=== PATIENT | female | born 1950 | race Caucasian/White ===

== ENCOUNTER 2020-08-19 14:54 | Inpatient (IN) | payer MEDICARE ==
--- NOTE | 2020-08-19 15:56 | CT ---
Exam: Head CT without contrast HISTORY: Altered mental status. Alert and oriented x2. Left-sided deficit. Previous CVA. COMPARISON: none FINDINGS: Hemorrhage: No intraparenchymal hemorrhage or extra-axial hematoma. Brain parenchyma: Encephalomalacia and gliosis involving the left occipital lobe due to previous left ACID TESTER distribution infarction. Remainder the cerebrum demonstrates preservation of cortical sanabria-white white matter differentiation.Hypodensity in the posterior limb of the right internal capsu le due to remote insult. Ventricular system: Ventricles and sulci are patent and symmetric. Calvarium: Intact. Sinuses and mastoid air cells: Adequate aeration. IMPRESSION: No acute intracranial process.
[2020-08-19 16:16] LABS: Bacteria/HPF 2+ HPF (None Seen); Bilirubin Negative (Negative); Blood, Urine 1+ (Negative); Clarity Turbid (Clear); Glucose, Urine (Dipstick) Normal (Negative); Ketone, Urine Negative (Negative); Leukocyte 500 Leu/uL (Negative); Medtox Reader # READER 4; Nitrite Negative (Negative); Protein, Urine (Dipstick) 70 mg/dL (Neg-Trace); Specific Gravity, Urine 1.014 (1.002-1.036); Squamous Epithelial 0-3 HPF (0-3); Urobilinogen Normal mg/dL (Less than 2); WBC/HPF Greater than 50 HPF (0-3); pH, Urine 6.5 (5.0-9.0)
[2020-08-19 16:18] LABS: Amphetamine Not Detected (NotDetected); Cocaine Metabolite Screen Not Detected (NotDetected); Methamphetamine Not Detected (NotDetected); Opiate Screen Detected (NotDetected); Phencyclidine (PCP) Not Detected (NotDetected); THC/Cannabinoid Screen Detected (NotDetected)
[2020-08-19 16:19] LABS: Barbiturates Screen Not Detected (NotDetected); Benzodiazepine Screen Not Detected (NotDetected); Medtox Control Line Valid? VALID (VALID); Methadone Not Detected (NotDetected); Oxycodone Screen Not Detected (NotDetected); Tricyclic Screen Detected (NotDetected)
[2020-08-19 16:22] LABS: Yeast-Hyphae 2+ HPF (None Seen)
--- NOTE | 2020-08-19 16:22 | RAD ---
CHEST 1 VIEW: Date: 08/19/2020 HISTORY: Altered mental status. COMPARISON: None. FINDINGS: Background lung hyperinflation. Old left-sided rib fractures. Extensive vascular calcifications of th e aorta. No confluent air space consolidation, pneumothorax, or effusion. IMPRESSION: Chronic findings. No acute intrathoracic abnormality. POS: HOME
[2020-08-19 16:25] LABS: #Basophils 0.1 thou/uL (0.0-0.2); #Monocytes 0.7 thou/uL (0.11-0.59); #Neutrophils 6.3 thou/uL (1.40-6.50); %Basophils 0.9 % (0.0-1.0); %Eosinophils 0.5 % (0.0-10.0); %Lymphocytes 12.1 % (21.0-51.0); %Monocytes 8.8 % (0.0-10.0); %Neutrophils 77.7 % (42.0-75.0); Mean Corpuscular HGB CONC 33.1 g/dL (32.0-36.0); Mean Corpuscular Hemoglobin 30.5 pg (27.0-31.0); Mean Corpuscular Volume 92.2 fL (78.0-98.0); Platelet Count 315 thou/uL (130-400); RBC Distribution Width 11.7 % (11.5-14.5); Red Blood Cell (RBC) Count 4.26 mill/uL (4.20-5.40); White Blood Cell (WBC) Count 8.1 thou/uL (4.8-10.8)
[2020-08-19] MEDS ORDERED: Sodium Chloride 0.9% 100 ML ONE (16:36)
[2020-08-19] MEDS ORDERED: cefTRIAXone\\ROCEPHIN 2 GM VIAL ONE (16:36)
[2020-08-19 16:41] LABS: Acetaminophen Less than 6.0 mcg/mL (10.0-30.0); Alcohol Less than 10 mg/dL (Less than 10); CK (CPK) 109 U/L (29-168); Salicylate Less than 8.0 mg/dL (15.0-30.0)
[2020-08-19 16:53] LABS: ALT (SGPT) 17 U/L (8-55); AST (SGOT) 28 U/L (5-34); Albumin 4.1 g/dL (3.4-4.8); Alkaline Phosphatase 101 U/L (40-110); Anion Gap 18 mmol/L (10-20); BUN (Urea Nitrogen) 16 mg/dL (9.8-20.1); Bilirubin, Total 0.3 mg/dL (0.2-1.2); Calc. Creatinine Clearance 0 mL/min (70-130); Carbon Dioxide 17 mmol/L (23-31); Chloride 105 mmol/L (98-107); Globulin 3.1 g/dL (2.4-3.5); Glucose 86 mg/dL (80-115); Potassium 3.6 mmol/L (3.5-5.1); Protein, Total 7.2 g/dL (6.0-8.3); Sodium 136 mmol/L (136-145)
--- NOTE | 2020-08-19 18:24 | PDOC.FPRHP ---
- History of Present Illness Chief Complaint: AMS History of Present Illness: This is a 70-year-old female reportedly presenting to the ED via EMS from home after her HH caregiver noticed her to be altered. Her caregiver goes MWF and states the pt was fine on Wednesday but altered today. She reports that patient is usually alert and oriented x4. On evaluation, she is A&O x2 to person and date. Her HH nurse reports the pt had her prescription of Tylenol 3 by her bed and doesn't know if the pt took more than ordered, but only 2 pills were missing from the bottle. In the ED, she was found to have a UTI and given 2L NS bolus and 2g Rocephin. UDS was neg, serum drug screen pos for THC, opiates, TCAs. CXR was read as hyperinflation with chronic findings with no acute cardiopulmonary process. CT brain showed no acute process. The patient denies anything being wrong or abnormal aside from L leg pain. She had a L hip fx from a prior stroke but states it normally does not hurt. She states this is the second time it has been hurting and she describes it as cramping in her medial Lt thigh. She is wheelchair-bound but states she can transfer to it from the bed at baseline, which was confirmed with her HH caregiver. She denies any recent falls but her caregiver states the pt told her she "flipped out of her wheelchair last week". It appears her PCP gave her Tyl 3 for this but the pt does not appear to have gone to the hospital. Of note, she was taken to a hospital in [place] on 08/08 for cramping shoulder pain but was not admitted. She states she typically only eats 1 meal per day and cannot confirm whether she has been eating less than that. She is dry on exam with cracked lips and tongue; K on BMP is nml; Mg and phos pending. Pt states her brother Bill is her MPOA. 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 PSHx: denied FHx: Mom had stroke Social: lives at home. Smokes 4-5 cigarettes/day; hx of smoking 1ppd. Alcohol 2x/wk. Endorses marijuana use, last yesterday. Ihsan, brother, is MPOA. - Review of Systems General: denies: fever/chills ENT: reports: other (no sore throat) Respiratory: denies: cough, congestion Cardiovascular: denies: chest pain, edema Gastrointestinal: denies: nausea, diarrhea, abdominal pain Genitourinary: reports: other (wears briefs at home). denies: dysuria Skin: denies: rashes, lesions Musculoskeletal: reports: pain, stiffness (L-sided deficits) Neurological: reports: other (L sided deficits of upper and lower extremity). denies: weakness Psychological: denies: anxiety, depression - Vital signs BP: 117/61, MAP: 79, Pulse: 135, Resp: 18, Temp: 98.4 (Oral), O2 sat: 98 on (2L Oxygen) - Physical Exam Constitutional: awake, alert and oriented (A&Ox2) HEENT: normocephalic and atraumatic, grossly normal vision, grossly normal hearing -HEENT: B/l pupils not reactive but pupils constricted likely 2/2 opiates Dry mucus membranes on exam despite 2L NS bolus Neck: supple, trachea midline Chest: no-tender to palpation, no lesions Heart: RRR, normal S1/S2, no murmurs/rubs/gallops, pulses present (1+ dp, radial b/l) -Heart: Tachycardic Lungs: no respiratory distress, good air movement -Lungs: Trace end-expiratory wheezing on RUL Abdomen: soft, non-tender, no masses/distention Musculoskeletal: normal structure -Musculoskeletal: Contracted L upper extremity. Grossly full ROM of other 3 extremities. Not ttp to palpation, no apparent bruising or deformity. -Neurological: Contracted L upper extremity. Skin: no rash/lesions, good turgor, capillary refill <2 seconds Heme/Lymphatic: no unusual bruising or bleeding Psychiatric: normal mood and affect, intact recent and remote memory (Not oriented to location or reason for being in the hospital but oriented to medical hx) FMR H&P: Results - Labs Result Diagrams: 08/19/20 16:14 08/19/20 16:14 Lab results: Trop neg x1 Procal 0.08 LA 1.2 WBC 8.1 thou/uL (4.8-10.8) 08/19/20 16:14 Hgb 13.0 g/dL (12.0-16.0) 08/19/20 16:14 Hct 39.3 % (36.0-47.0) 08/19/20 16:14 MCV 92.2 fL (78.0-98.0) 08/19/20 16:14 Plt Count 315 thou/uL (130-400) 08/19/20 16:14 Neutrophils % 77.7 % (42.0-75.0) H 08/19/20 16:14 Sodium 136 mmol/L (136-145) 08/19/20 16:14 Potassium 3.6 mmol/L (3.5-5.1) 08/19/20 16:14 Chloride 105 mmol/L (98-107) 08/19/20 16:14 Carbon Dioxide 17 mmol/L (23-31) L 08/19/20 16:14 BUN 16 mg/dL (9.8-20.1) 08/19/20 16:14 Creatinine 1.50 mg/dL (0.6-1.1) H 08/19/20 16:14 Glucose 86 mg/dL (80-115) 08/19/20 16:14 Calcium 9.0 mg/dL (7.8-10.44) 08/19/20 16:14 Total Bilirubin 0.3 mg/dL (0.2-1.2) 08/19/20 16:14 AST 28 U/L (5-34) 08/19/20 16:14 ALT 17 U/L (8-55) 08/19/20 16:14 Alkaline Phosphatase 101 U/L (40-110) 08/19/20 16:14 Creatine Kinase 109 U/L (29-168) 08/19/20 16:14 Serum Total Protein 7.2 g/dL (6.0-8.3) 08/19/20 16:14 Albumin 4.1 g/dL (3.4-4.8) 08/19/20 16:14 Urine Ketones Negative mg/dL (Negative) 08/19/20 15:36 Urine Blood 1+ (Negative) A 08/19/20 15:36 Urine Nitrite Negative (Negative) 08/19/20 15:36 Ur Leukocyte Esterase 500 Jazmyne/uL (Negative) A 08/19/20 15:36 Urine RBC 4-6 HPF (0-3) A 08/19/20 15:36 Urine WBC Greater than 50 HPF (0-3) A 08/19/20 15:36 Ur Squamous Epith Cells 0-3 HPF (0-3) 08/19/20 15:36 Urine Bacteria 2+ HPF (None Seen) A 08/19/20 15:36 - Radiology Interpretation Chest x-ray Status: report reviewed by me (Hyperinflation, chronic changes. No acute cardiopulmonary process) CT scan - head Status: report reviewed by me (No acute intracranial process) Other Status: report reviewed by me Additional comment: UDS neg, serum drug screen + for THC, opiates, TCAs UA turbid, leuks, bacteria, protein, blood, WBC/RBC, yeast FMR H&P: A/P - Plan This is a 70F brought to ED after her HH nurse noticed altered mentation, and was found to have a UTI. Encephalopathy likely 2/2 UTI - Did not meet SIRS criteria. s/p 2L NS bolus and 2g Rocephin in ED - UA turbid, leuks, bacteria, protein, blood, WBC/RBC, yeast * Continue Rocephin * Diflucan - UCx, BCx pending - UDS neg. - Serum drug screen + opiates, TCAs c/w home medications, and THC - CXR shows chronic changes - CT brain - no abnormalities - Procal 0.08. - LA 1.2 but s/p fluid bolus therefore likely inaccurate - NPO pending bedside swallow - am CBC, BMP Hx of CVA - CVA x2 with L-sided UE and LE deficits. LUE fixed in a contracture - Wheelchair-bound - Ppx Lovenox L leg pain - Hx of Lt leg fx with prior CVA. Appears MSK in nature - K nml on BMP. Mg 1.2 - P 4.9, see below - Continue home Tyl 3 - Tylenol, ice/heating pad, flexeril prn Hyperphosphatemia - P 4.5 - Suspected to be 2/2 ESA vs CKD - Monitor with am BMP Suspected COPD - Smoking hx - CXR shows hyperinflation and chronic changes - Denies dx of COPD. No home O2 requirement - Monitor O2 requirement. On RA currently - Maintain SpO2 88-92% at rest ESA vs ESA on CKD - Cr 1.3, no baseline - eGFR 34 - Will monitor changes s/p IVF - am BMP to monitor IVF: LR @ 100mL/h Diet: NPO pending bedside swallow GI Ppx: N/A DVT Ppx: Lovenox Code: Full. Needs to be verified with SIL, brother Ihsan, but number provided does not work. [facility] am to obtain contact info. PCP: MIKE Villegas in [place], [place]. [place] Dispo: medical obs. Monitor improvement of mentation. eLOS <48hrs. FMR H&P: Upper Level - Pertinent history PCP: MI[facility]- [facility] HPI: 70YOF with a PMH notable for a prior CVA w/ L-sided deficits presenting from home via EMS for reported AMS noted earlier today by HH nurse. Of note, history was very limited as patient was A&O x2 on exam & reported no recollection as to why she was in the hospital. Per the ER physician report, the patients HH nurse called EMS to bring the patient in as she was acting altered and is normally A&O x4 at baseline. Confirmed with HH nurse that at last home visit on Wednesday, 08/16 patient was her usual self but was acting altered during her visit today. HH nurse also reports patient did have a fall last Wednesday where she fell out of her wheelchair. Was seen in the ED & by her PCP for pain following this and was just given pain meds & sent home. 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 Patient denied any fever/chills, dysuria, hematuria, SOB, cough, congestion or sore throat on exam. ED course: 2g Rocephin, 2L NS, 1g PO tylenol Please see electrical intern note for pertinent PMH - Pertinent findings Labs/Imaging: CT brain: NAF CXR: aortic calcifications & hyperinflation EKG: NSR @ bpm WBC 8.1 Procal & lactate pending Bld & urine Cxs pending Cr 1.5 eGFR 34 CrCl UA: turbid, bld, WBC, LE, 2+ bacteria & yeast REVIEW OF SYSTEMS: 12 point ROS negative except what is mentioned in the HPI Vitals: BP: 146/60 HR: 111 RR: 18 O2 sat: 88-90% on RA Tmax: 98.4F Weight: 60 kg PHYSICAL EXAMINATION: General: laying in bed in moderate distress 2/2 left leg cramp HEENT: normocephalic atraumatic; dry mucus membranes; pupils pinpoint Neck: Supple. Full ROM. Heart/Cardiovascular System: tachycardic but regular rhythm, no murmurs noted Lungs/Respiratory System: mild end expiratory wheezing noted in RUL Abdomen/Gastro-Intestinal System: soft w/o TTP, normal bowel sounds Extremities: Warm w/ intact pulses bilaterally. No edema noted. 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 Oriented to person and time only. Skin: intact w/o lesions, bruising, or rashes noted - Plan Date/Time: 08/19/201822 I, Pippa Stubbs, have evaluated this patient and agree with findings/plan as outlined by electrical intern resident. Pertinent changes/additions are listed here. A/P: Acute encephalopathy 2/2 UTI -Patient oriented to person and time only on exam. Denied any PMH other than CVA x2 when this is obviously not the case based on her home med list. Has no recollection of events leading up to her hospitalization. HR in the 130s on arrival but all other vitals WNLs. No WBC or elevated lactate so did not meet sirs criteria but UA obtained via straight cath notable for WBCs, RBCs, LE, 2+ bacteria & 2+ yeast. s/p 2g Rocephin in the ED. -Will continue rocephin 1g IV Q24 hours & start on diflucan 200mg QD pending Cx results. -Blood cultures also pending but procal only 0.08 so low suspicion for bacteremia. Left leg pain -Patient reportedly had a fall from her wheelchair on 08/13 & has been having pain since. No known imaging done to r/o an acute fracture per nurse. Left Hip & knee x-rays pending. Will continue home T3 & flexeril as noted below for pain control. ESA vs. possible CKDIII -Cr 1.5 on presentation w/ no baseline for comparison. Appeared dry on exam. s/p 2L NS in the ED & will continue mIVFs w/ LR @ 100mL/hr & continue to trend Hx CVA w/ residual L-sided deficits -Aware, will resume home meds but will add prn flexeril as cramping reported in HPI likely 2/2 contractures noted on exam. -Wheelchair bound at baseline per patient & HH nurse. Per HH nurse is able to transfer herself Suspected COPD -CXR appears hyperinflated c/w COPD but patient not on inhalers at home per med list. PRN albuterol for wheezing/SOB & goal to maintain O2 sats between 88-92% on RA. HTN -Aware, will resume home meds Hypothyroidism -Resume home meds. Depression/anxiety -Resume home meds. Marijuana abuse -Patient admitted to last use yesterday. Will encourage cessation. Tobacco abuse -Will encourage cessation. PCP: [facility]/unknown ABx: Rocephin (08/19) IVFs: LR @ 100mL/hr VTE PPX: lovenox GI PPX: None Code status: FULL CODE Dispo: Will admit to the medical floor for continued IV abx & fluids overnight for UTI. Anticipated LOS at least 2 midnights pending clinical course. Addendum - Attending - Attending Attestation Date/Time: 08/19/202132 I personally evaluated the patient and discussed the management with Dr. Mason/Enoc I agree with the History, Examination, Assessment and Plan documented above with any addition or exceptions noted below.
[2020-08-19] MEDS ORDERED: Acetaminophen 500 MG TAB ONE (19:10)
[2020-08-19] MEDS ORDERED: Ondansetron ODT 4 MG TAB PO PRN (19:27)
[2020-08-19 20:30] LABS: Magnesium 2.1 mg/dL (1.6-2.6); Phosphorus 4.9 mg/dL (2.3-4.7)
[2020-08-19] MEDS ORDERED: PROVENTIL INHALER 6.7 G (200 INHALATIONS) INH PRN (20:52)
[2020-08-19] MEDS: Fluconazole 100 MG TAB PO SCH (20:59)
[2020-08-19] MEDS: Cyclobenzaprine 10 MG TAB PO PRN (20:59)
[2020-08-19] MEDS: Lactated Ringer's 1,000 ML IV SCH (20:59)
[2020-08-19] MEDS: Ondansetron PF 4 MG/2 ML Vial IVP PRN (20:59)
--- NOTE | 2020-08-19 21:40 | RAD ---
2 views left hip: 08/19/2020 HISTORY: Recent fall, thigh pain FINDINGS: There is a left hip arthroplasty present. Frontal imaging is limited secondary to rotation to the right. There is heterotopic bone adjacent to the left greater trochanter. No displaced fracture or dislocation is seen. IMPRESSION: Limited study secondary to positioning. Left hip arthroplasty with no evidence for displa stephanie fracture or dislocation.
--- NOTE | 2020-08-19 21:41 | RAD ---
2 views of the left knee: 08/19/2020 History: Fall, pain FINDINGS: The lateral exam demonstrates no knee joint effusion, displaced fracture, or evidence of di slocation. Frontal imaging is limited secondary to flexion. IMPRESSION: Limited assessment of the left knee demonstrating no displaced fracture. If symptoms pers ist, full 4 view examination with better patient positioning recommended
[2020-08-19 22:39] VITALS: BMI 20.9
[2020-08-19] MEDS: Acetaminophen/Codeine 30-300mg Tablet PO PRN (22:57)
[2020-08-20] MEDS ORDERED: Famotidine 20 MG TAB PO PRN (01:00)
[2020-08-20 02:56] LABS: SARS-CoV-2 MS2 Positive; SARS-CoV-2 N Gene Negative; SARS-CoV-2 S Gene Negative; SARS-CoV-2 by NAA Not Detected (NotDetected); SARS-CoV-2 orf1ab Negative
[2020-08-20] MEDS: Cyclobenzaprine 10 MG TAB PO PRN ×2 (03:16→16:03)
[2020-08-20] MEDS: Ondansetron PF 4 MG/2 ML Vial IVP PRN (03:16)
[2020-08-20 05:43] LABS: #Monocytes 0.8 thou/uL (0.11-0.59); #Neutrophils 6.4 thou/uL (1.40-6.50); %Basophils 0.5 % (0.0-1.0); %Eosinophils 0.3 % (0.0-10.0); %Monocytes 10.1 % (0.0-10.0); %Neutrophils 77.1 % (42.0-75.0); Hemoglobin 11.4 g/dL (12.0-16.0); Mean Corpuscular HGB CONC 32.9 g/dL (32.0-36.0); Mean Corpuscular Hemoglobin 30.4 pg (27.0-31.0); Mean Corpuscular Volume 92.3 fL (78.0-98.0); Mean Platelet Volume 7.2 fL (7.4-10.4); Platelet Count 231 thou/uL (130-400); RBC Distribution Width 11.5 % (11.5-14.5); Red Blood Cell (RBC) Count 3.76 mill/uL (4.20-5.40); White Blood Cell (WBC) Count 8.3 thou/uL (4.8-10.8)
[2020-08-20 06:04] LABS: Anion Gap 12 mmol/L (10-20); BUN (Urea Nitrogen) 15 mg/dL (9.8-20.1); Calc. Creatinine Clearance 49 mL/min (70-130); Calcium 8.2 mg/dL (7.8-10.44); Carbon Dioxide 17 mmol/L (23-31); Chloride 107 mmol/L (98-107); Glucose 75 mg/dL (80-115); Potassium 3.4 mmol/L (3.5-5.1); Sodium 133 mmol/L (136-145)
[2020-08-20] MEDS: Lactated Ringer's 1,000 ML IV SCH ×2 (07:10→16:07)
--- NOTE | 2020-08-20 07:46 | PDOC.FM ---
- Subjective Subjective: pt able to sit up in bed and take medications with nurse staff upon my entry to room. oriented to person and place C/o not wanting to stay in bed, getting agitated with staff. - Objective MAR Reviewed: Yes Vital Signs & Weight: Vital Signs (12 hours) Temp Pulse Resp BP Pulse Ox 08/20/20 07:35 98.4 F 86 16 136/52 L 96 08/20/20 04:00 98.8 F 107 H 19 126/78 96 08/19/20 23:43 97.7 F 107 H 19 131/55 L 96 08/19/20 20:00 98.1 F 102 H 20 127/48 L 90 L Weight Weight 55.395 kg I&O: 08/19/20 08/20/20 08/21/20 06:59 06:59 06:59 Intake Total 1380 Output Total 400 Balance 980 Result Diagrams: 08/20/20 05:11 08/20/20 05:11 Radiology Reviewed by me: Yes (no acute fx or disloation on L knee or hip ) Phys Exam - Physical Examination agitated and disoriented to situation HEENT: sclera anicteric dry MM Neck: no JVD, supple Respiratory: no wheezing, no rales, no rhonchi, clear to auscultation bilateral Cardiovascular: RRR, no significant murmur, no rub Gastrointestinal: soft, non-tender, no distention, positive bowel sounds Musculoskeletal: no edema, pulses present contractures of LUE and LLE contracture of LUE without ability to move LUE. Chronic deficit from CVA Deviation from normal: agitated and oriented to person and place only Skin: no rash Dx/Plan (1) Acute metabolic encephalopathy Code(s): G93.41 - METABOLIC ENCEPHALOPATHY Status: Acute (2) UTI (urinary tract infection) Status: Acute (3) ESA (acute kidney injury) Code(s): N17.9 - ACUTE KIDNEY FAILURE, UNSPECIFIED Status: Acute - Plan Plan: This is a 70F brought to ED after her HH nurse noticed altered mentation, and was found to have a UTI. Metabolic Encephalopathy likely 2/2 UTI - Did not meet SIRS criteria. s/p 2L NS bolus and 2g Rocephin in ED - UA turbid, leuks, bacteria, protein, blood, WBC/RBC, yeast * Continue Rocephin * Diflucan * - will deescalate once culture results if appropriate. - UCx, BCx pending - UDS neg. - Serum drug screen + opiates, TCAs c/w home medications, and THC - CXR shows chronic changes - CT brain - no abnormalities - Procal 0.08. - LA 1.2 but s/p fluid bolus therefore likely inaccurate - speech recs for diet, passed bedside swallow study. - trend CBC, BMP Hx of CVA - CVA x2 with L-sided UE and LE deficits. LUE fixed in a contracture - Wheelchair-bound - Ppx Lovenox L leg pain - Hx of Lt leg fx with prior CVA. Appears MSK in nature - K nml on BMP. Mg 1.2 - Phos 4.9, see below - Continue home Tyl - Tylenol, ice/heating pad, flexeril prn - knee and hip x-ray no fracture or dislocation. Hyperphosphatemia - P 4.5 - Suspected to be 2/2 ESA vs CKD - Monitor with am BMP Suspected COPD - Smoking hx - CXR shows hyperinflation and chronic changes - Denies dx of COPD. No home O2 requirement - Monitor O2 requirement. On RA currently - Maintain SpO2 88-92% at rest ESA vs ESA on CKD - Cr 1.3, no baseline - eGFR 34 - Will monitor changes s/p IVF LR @ 100 ml/hr - BMP to monitor IVF: LR @ 100mL/h Diet: reg diet, speech recs for consistency of diet. DVT Ppx: Lovenox Code: Full. PCP: [facility] - Dr. Derrick Villegas in [place], [place]. [place] Dispo: medical obs. Monitor improvement of mentation. eLOS <48hrs. Addendum - Attending - Attending Attestation Date/Time: 08/20/20 1051 I personally evaluated the patient and discussed the management with Dr. Koehler. I agree with the History, Examination, Assessment and Plan documented above with any addition or exceptions noted below.
[2020-08-20] MEDS ORDERED: Potassium Chloride 20 MEQ TAB PO SCH (08:00)
[2020-08-20] MEDS: Enoxaparin Sodium 40 MG/0.4 ML SYRINGE SC SCH (08:07)
[2020-08-20] MEDS: Acetaminophen/Codeine 30-300mg Tablet PO PRN ×2 (11:29→18:43)
[2020-08-20] MEDS: Fluconazole 100 MG TAB PO SCH (20:00)
[2020-08-20] MEDS: cefTRIAXone\\ROCEPHIN 1 GM in Sodium Chloride 0.9% 100 ML IVPB SCH (20:02)
[2020-08-20] MEDS: Rosuvastatin 20 MG TAB PO SCH (20:45)
[2020-08-20] MEDS ORDERED: FLU VACC QS2020-21(65YR UP)/PF 240 MCG/0.7 ML SYRINGE IM ONE (21:00)
[2020-08-21] MEDS: Lactated Ringer's 1,000 ML IV SCH ×2 (00:06→16:21)
[2020-08-21] MEDS: Levothyroxine Sodium 100 MCG TAB PO SCH (05:25)
[2020-08-21] MEDS: Acetaminophen/Codeine 30-300mg Tablet PO PRN ×2 (05:25→16:21)
--- NOTE | 2020-08-21 07:55 | PDOC.FM ---
- Subjective Subjective: Pt is starting to be more oriented and states she understands she has not been well the last few days. no acute overnight events. VSS - Objective MAR Reviewed: Yes Vital Signs & Weight: Vital Signs (12 hours) Temp Pulse Resp BP Pulse Ox 08/21/20 06:29 97.6 F 82 18 102/61 90 L 08/20/20 23:10 98.1 F 76 18 103/63 89 L 08/20/20 20:25 90 L Weight Weight 55.395 kg I&O: 08/20/20 08/21/20 08/22/20 06:59 06:59 06:59 Intake Total 1380 3470 Output Total 400 Balance 980 3470 Result Diagrams: 08/21/20 08:01 08/21/20 08:01 Phys Exam - Physical Examination Constitutional: NAD A&OX3 HEENT: moist MMs, sclera anicteric Neck: no JVD, supple Respiratory: no wheezing, no rales, no rhonchi, clear to auscultation bilateral Cardiovascular: RRR, no significant murmur Gastrointestinal: soft, no distention, positive bowel sounds chronic contractures of the KEITH and LL extremities inability to move LUE. Psychiatric: normal affect, A&O x 3 Deviation from normal: slightly confsed to situation Skin: normal turgor, cap refill <2 seconds Dx/Plan (1) Acute metabolic encephalopathy Code(s): G93.41 - METABOLIC ENCEPHALOPATHY Status: Acute (2) UTI (urinary tract infection) Status: Acute (3) ESA (acute kidney injury) Code(s): N17.9 - ACUTE KIDNEY FAILURE, UNSPECIFIED Status: Acute - Plan Plan: This is a 70F brought to ED after her HH nurse noticed altered mentation, and was found to have a UTI. Metabolic Encephalopathy likely 2/2 UTI, improving - Did not meet SIRS criteria. s/p 2L NS bolus and 2g Rocephin in ED - UA turbid, leuks, bacteria, protein, blood, WBC/RBC, yeast * Continue Rocephin * Diflucan * - will deescalate once culture results if appropriate. - UCx, BCx pending - UDS + opiates, TCA's and THC. - CXR shows chronic changes - CT brain - no abnormalities - Procal 0.08. - LA 1.2 but s/p fluid bolus therefore likely inaccurate - speech recs for diet, see note for full details. passed bedside swallow study as well. - trend CBC, BMP Hx of CVA - CVA x2 with L-sided UE and LE deficits. LUE fixed in a contracture - Wheelchair-bound - Ppx Lovenox L leg pain - Hx of Lt leg fx with prior CVA. Appears MSK in nature - K nml on BMP. Mg 1.2 - Phos 4.9, see below - Continue home Tyl - Tylenol, ice/heating pad, flexeril prn - knee and hip x-ray no fracture or dislocation. Hyperphosphatemia - P 4.5 - Suspected to be 2/2 ESA vs CKD - Monitor with am BMP Suspected COPD - Smoking hx - CXR shows hyperinflation and chronic changes - Denies dx of COPD. No home O2 requirement - Monitor O2 requirement. On RA currently - Maintain SpO2 88-92% at rest ESA vs ESA on CKD - Cr 1.3, no baseline - eGFR 34 - Will monitor changes s/p IVF LR @ 100 ml/hr - BMP to monitor IVF: LR @ 100mL/h Diet: reg diet, follow speech recs for consistency of diet. DVT Ppx: Lovenox Code: Full. PCP: [facility] - Dr. Derrick Villegas in [place], [place]. Pt [place] Dispo: medical inpt. Monitor improvement of mentation. eLOS >48hrs. Addendum - Attending - Attending Attestation Date/Time: 08/21/20 [id number] I personally evaluated the patient and discussed the management with Dr. Koehler. I agree with the History, Examination, Assessment and Plan documented above with any addition or exceptions noted below.
[2020-08-21 08:18] LABS: #Monocytes 0.7 thou/uL (0.11-0.59); #Neutrophils 4.6 thou/uL (1.40-6.50); %Basophils 0.7 % (0.0-1.0); %Eosinophils 0.5 % (0.0-10.0); %Lymphocytes 15.8 % (21.0-51.0); %Monocytes 10.4 % (0.0-10.0); %Neutrophils 72.6 % (42.0-75.0); Hemoglobin 10.9 g/dL (12.0-16.0); Mean Corpuscular Hemoglobin 30.8 pg (27.0-31.0); Mean Corpuscular Volume 93.4 fL (78.0-98.0); Mean Platelet Volume 6.8 fL (7.4-10.4); Platelet Count 219 thou/uL (130-400); RBC Distribution Width 11.5 % (11.5-14.5); Red Blood Cell (RBC) Count 3.54 mill/uL (4.20-5.40); White Blood Cell (WBC) Count 6.3 thou/uL (4.8-10.8)
[2020-08-21 08:34] LABS: Anion Gap 11 mmol/L (10-20); BUN (Urea Nitrogen) 8 mg/dL (9.8-20.1); Calc. Creatinine Clearance 50 mL/min (70-130); Calcium 8.3 mg/dL (7.8-10.44); Carbon Dioxide 23 mmol/L (23-31); Chloride 109 mmol/L (98-107); Glucose 76 mg/dL (80-115); Potassium 3.3 mmol/L (3.5-5.1); Sodium 140 mmol/L (136-145)
[2020-08-21] MEDS: Cyclobenzaprine 10 MG TAB PO PRN (08:48)
[2020-08-21] MEDS: Citalopram 20 MG TAB PO SCH (08:48)
[2020-08-21] MEDS: Amlodipine 10 MG TAB PO SCH (08:49)
[2020-08-21] MEDS: Lisinopril 5 MG TAB PO SCH (08:49)
[2020-08-21] MEDS: Enoxaparin Sodium 40 MG/0.4 ML SYRINGE SC SCH (08:56)
[2020-08-21] MEDS: Clopidogrel Bisulfate 75 MG TAB PO SCH (08:56)
[2020-08-21] MEDS: cefTRIAXone\\ROCEPHIN 1 GM in Sodium Chloride 0.9% 100 ML IVPB SCH (19:57)
[2020-08-21] MEDS: Rosuvastatin 20 MG TAB PO SCH (20:02)
[2020-08-21] MEDS: Fluconazole 100 MG TAB PO SCH (20:02)
[2020-08-22] MEDS: Acetaminophen/Codeine 30-300mg Tablet PO PRN ×2 (00:06→15:23)
[2020-08-22] MEDS: Lactated Ringer's 1,000 ML IV SCH ×3 (01:24→18:38)
[2020-08-22] MEDS: Levothyroxine Sodium 100 MCG TAB PO SCH (05:56)
[2020-08-22 06:24] LABS: Anion Gap 11 mmol/L (10-20); BUN (Urea Nitrogen) 5 mg/dL (9.8-20.1); Calc. Creatinine Clearance 53 mL/min (70-130); Calcium 8.5 mg/dL (7.8-10.44); Carbon Dioxide 27 mmol/L (23-31); Chloride 107 mmol/L (98-107); Glucose 85 mg/dL (80-115); Mean Corpuscular Hemoglobin 31.2 pg (27.0-31.0); Mean Corpuscular Volume 91.6 fL (78.0-98.0); Platelet Count 227 thou/uL (130-400); Potassium 3.4 mmol/L (3.5-5.1); RBC Distribution Width 11.4 % (11.5-14.5); Red Blood Cell (RBC) Count 3.54 mill/uL (4.20-5.40); Sodium 142 mmol/L (136-145); White Blood Cell (WBC) Count 3.7 thou/uL (4.8-10.8)
[2020-08-22 06:25] LABS: Hypochromia SLIGHT = 6-15 cells (100X) (0-5/hpf); Lymphocytes 41 % (21-51); MDiff Complete? YES; Monocytes 11 % (0-10); Neutrophil 47 % (42-75); Platelet Morphology Comment Appears Adequate; Reactive Lymphocytes 1 % (0-10)
--- NOTE | 2020-08-22 07:41 | PDOC.FM ---
- Subjective Subjective: Pt much better refuses rehab or facility placement wants to go home with home health denies confusion - Objective MAR Reviewed: Yes Vital Signs & Weight: Vital Signs (12 hours) Temp Pulse Resp BP Pulse Ox 08/22/20 05:55 98.3 F 71 16 111/69 90 L 08/22/20 00:22 98.2 F 82 20 117/68 90 L 08/21/20 20:17 90 L 08/21/20 19:49 98.3 F 82 18 104/59 L 90 L Weight Weight 55.395 kg I&O: 08/21/20 08/22/20 08/23/20 06:59 06:59 06:59 Intake Total 3470 2840 Balance 3470 2840 Result Diagrams: 08/22/20 05:39 08/22/20 05:39 Phys Exam - Physical Examination Constitutional: NAD alert and OX3 HEENT: moist MMs, sclera anicteric Neck: supple, full ROM Respiratory: no wheezing, no rales, no rhonchi, clear to auscultation bilateral Cardiovascular: RRR, no significant murmur Gastrointestinal: soft, no distention, positive bowel sounds Lest sided contractures of U and L extrem. Psychiatric: normal affect, A&O x 3 Skin: normal turgor, cap refill <2 seconds Dx/Plan (1) Acute metabolic encephalopathy Code(s): G93.41 - METABOLIC ENCEPHALOPATHY Status: Acute (2) UTI (urinary tract infection) Status: Acute (3) ESA (acute kidney injury) Code(s): N17.9 - ACUTE KIDNEY FAILURE, UNSPECIFIED Status: Acute - Plan Plan: This is a 70F brought to ED after her HH nurse noticed altered mentation, and was found to have a UTI. Metabolic Encephalopathy likely 2/2 UTI, improved - Did not meet SIRS criteria. s/p 2L NS bolus and 2g Rocephin in ED - UA turbid, leuks, bacteria, protein, blood, WBC/RBC, yeast * Rocephin Iv for 3 days in hx. * Diflucan * ccx grew yeast. will treat for 14 days per uptodate recs- fluconazole - UDS + opiates, TCA's and THC. - CXR shows chronic changes - CT brain - no abnormalities - Procal 0.08. - LA 1.2 but s/p fluid bolus therefore likely inaccurate - speech recs for diet, see note for full details. passed bedside swallow study as well. Hx of CVA - CVA x2 with L-sided UE and LE deficits. LUE fixed in a contracture - Wheelchair-bound - Ppx Lovenox L leg pain - Hx of Lt leg fx with prior CVA. Appears MSK in nature - K nml on BMP. Mg 1.2 - Phos 4.9, see below - Continue home Tyl - Tylenol, ice/heating pad, flexeril prn - knee and hip x-ray no fracture or dislocation. Hyperphosphatemia - P 4.5 - Suspected to be 2/2 ESA vs CKD - Monitor with am BMP Suspected COPD - Smoking hx - CXR shows hyperinflation and chronic changes - Denies dx of COPD. No home O2 requirement - Monitor O2 requirement. On RA currently - Maintain SpO2 88-92% at rest ESA vs EAS on CKD - Cr 1.3, no baseline. improved to 0.87 cr - eGFR 34 - tolerating P owill d/c IVF's - BMP to monitor IVF: SL Diet: reg diet, follow speech recs for consistency of diet. DVT Ppx: Lovenox Code: Full. PCP: [facility] - Dr. Derrick Villegas in [place], [place]. Pt [place] Dispo: medical inpt. Monitor improvement of mentation. eLOS >48hrs. Plan d/c home with home health Addendum - Attending - Attending Attestation Date/Time: 08/22/20 3401 I personally evaluated the patient and discussed the management with Dr. Koehler. I agree with the History, Examination, Assessment and Plan documented above with any addition or exceptions noted below.
[2020-08-22] MEDS ORDERED: Potassium Chloride 20 MEQ TAB PO SCH (07:45)
[2020-08-22] MEDS: Clopidogrel Bisulfate 75 MG TAB PO SCH (08:39)
[2020-08-22] MEDS: Lisinopril 5 MG TAB PO SCH (08:39)
[2020-08-22] MEDS: Amlodipine 10 MG TAB PO SCH (08:39)
[2020-08-22] MEDS: Enoxaparin Sodium 40 MG/0.4 ML SYRINGE SC SCH (08:39)
[2020-08-22] MEDS: Citalopram 20 MG TAB PO SCH (08:39)
[2020-08-22] MEDS: cefTRIAXone\\ROCEPHIN 1 GM in Sodium Chloride 0.9% 100 ML IVPB SCH (20:12)
[2020-08-22] MEDS: Rosuvastatin 20 MG TAB PO SCH (20:12)
[2020-08-22] MEDS: Fluconazole 100 MG TAB PO SCH (20:12)
[2020-08-23] MEDS: Lactated Ringer's 1,000 ML IV SCH (05:37)
[2020-08-23] MEDS: Levothyroxine Sodium 100 MCG TAB PO SCH (05:37)
[2020-08-23 05:52] LABS: #Eosinphils 0.1 thou/uL (0.0-0.7); #Monocytes 0.6 thou/uL (0.11-0.59); #Neutrophils 4.9 thou/uL (1.40-6.50); %Basophils 0.5 % (0.0-1.0); %Eosinophils 0.9 % (0.0-10.0); %Lymphocytes 15.2 % (21.0-51.0); %Monocytes 9.7 % (0.0-10.0); %Neutrophils 73.7 % (42.0-75.0); Hemoglobin 12.7 g/dL (12.0-16.0); Mean Corpuscular HGB CONC 32.9 g/dL (32.0-36.0); Mean Corpuscular Hemoglobin 30.1 pg (27.0-31.0); Mean Corpuscular Volume 91.5 fL (78.0-98.0); Platelet Count 259 thou/uL (130-400); RBC Distribution Width 11.7 % (11.5-14.5); Red Blood Cell (RBC) Count 4.21 mill/uL (4.20-5.40); White Blood Cell (WBC) Count 6.6 thou/uL (4.8-10.8)
[2020-08-23 06:12] LABS: Anion Gap 16 mmol/L (10-20); BUN (Urea Nitrogen) Less than 4 mg/dL (9.8-20.1); Calc. Creatinine Clearance 58 mL/min (70-130); Calcium 8.8 mg/dL (7.8-10.44); Carbon Dioxide 25 mmol/L (23-31); Chloride 103 mmol/L (98-107); Glucose 79 mg/dL (80-115); Potassium 3.4 mmol/L (3.5-5.1); Sodium 141 mmol/L (136-145)
--- NOTE | 2020-08-23 07:30 | PDOC.FM ---
- Subjective Subjective: Pt much improved, awake upon entry to room accepted for HH care [facility] in [place]. feeling anxious to get back home so she can feed her cat. not confused. - Objective MAR Reviewed: Yes Vital Signs & Weight: Vital Signs (12 hours) Temp Pulse Resp BP Pulse Ox 08/23/20 07:22 99 F 83 14 118/69 92 L 08/23/20 04:05 98.1 F 86 18 149/76 H 90 L 08/22/20 23:37 98.7 F 81 18 144/80 H 92 L 08/22/20 20:33 94 L 08/22/20 20:13 98.3 F 76 18 117/67 94 L Weight Weight 55.395 kg I&O: 08/22/20 08/23/20 08/24/20 06:59 06:59 06:59 Intake Total 2840 2100 Balance 2840 2100 Result Diagrams: 08/23/20 05:30 08/23/20 05:30 Phys Exam - Physical Examination Constitutional: NAD A&OX3 HEENT: moist MMs, sclera anicteric Neck: supple Respiratory: no wheezing, no rales, no rhonchi, clear to auscultation bilateral Cardiovascular: RRR, no significant murmur Gastrointestinal: soft, no distention, positive bowel sounds Musculoskeletal: no edema contractures on LUE and LLE. Psychiatric: normal affect, A&O x 3 Skin: normal turgor, cap refill <2 seconds Dx/Plan (1) Acute metabolic encephalopathy Code(s): G93.41 - METABOLIC ENCEPHALOPATHY Status: Acute (2) UTI (urinary tract infection) Status: Acute (3) ESA (acute kidney injury) Code(s): N17.9 - ACUTE KIDNEY FAILURE, UNSPECIFIED Status: Acute - Plan Plan: This is a 70F brought to ED after her HH nurse noticed altered mentation, and wa s found to have a UTI. Metabolic Encephalopathy likely 2/2 UTI, resolved - Did not meet SIRS criteria. s/p 2L NS bolus and 2g Rocephin in ED - UA turbid, leuks, bacteria, protein, blood, WBC/RBC, yeast * Rocephin Iv for 3 days in hx. * Diflucan PO for 14 days * ccx grew yeast. will treat for 14 days per uptodate recs- fluconazole - UDS + opiates, TCA's and THC. - CXR shows chronic changes - CT brain - no abnormalities - Procal 0.08. - LA 1.2 but s/p fluid bolus therefore likely inaccurate - speech recs for diet, see note for full details. passed bedside swallow study as well. Hx of CVA - CVA x2 with L-sided UE and LE deficits. LUE fixed in a contracture - Wheelchair-bound - Ppx Lovenox L leg pain - Hx of Lt leg fx with prior CVA. Appears MSK in nature - K nml on BMP. Mg 1.2 - Phos 4.9, see below - Continue home Tyl - Tylenol, ice/heating pad, flexeril prn - knee and hip x-ray no fracture or dislocation. Hyperphosphatemia - P 4.5 - Suspected to be 2/2 ESA vs CKD - Monitor with am BMP Suspected COPD - Smoking hx - CXR shows hyperinflation and chronic changes - Denies dx of COPD. No home O2 requirement - Monitor O2 requirement. On RA currently - Maintain SpO2 88-92% at rest ESA vs ESA on CKD - Cr 1.3, no baseline. improved to 0.87 cr - eGFR 34 - tolerating P owill d/c IVF's - BMP to monitor IVF: SL Diet: reg diet, follow speech recs for consistency of diet. DVT Ppx: Lovenox Code: Full. PCP: [facility] - Dr. Derrick Villegas in [place], [place]. Pt from [place] Dispo: medical inpt. Improvement of mentation. eLOS >48hrs. Plan d/c home with home health with [facility]. Addendum - Attending - Attending Attestation Date/Time: 08/24/20 2129 I personally evaluated the patient and discussed the management with Dr. Koehler yesterday. I agree with the History, Examination, Assessment and Plan documented above with any addition or exceptions noted below.
[2020-08-23] MEDS: Lisinopril 5 MG TAB PO SCH (08:42)
[2020-08-23] MEDS: Enoxaparin Sodium 40 MG/0.4 ML SYRINGE SC SCH (08:42)
[2020-08-23] MEDS: Amlodipine 10 MG TAB PO SCH (08:43)
[2020-08-23] MEDS: Clopidogrel Bisulfate 75 MG TAB PO SCH (08:43)
[2020-08-23] MEDS: Citalopram 20 MG TAB PO SCH (08:43)
[2020-08-23] MEDS ORDERED: Potassium Chloride 20 MEQ TAB PO SCH (10:15)
[2020-08-23 11:37] VITALS: BP 124/70; TEMP 98.5
--- NOTE | 2020-08-23 14:44 | DIS ---
DATE OF ADMISSION: 08/19/2020 DATE OF DISCHARGE: 08/23/2020 RESIDENT: Kayy Koehler DO ADMITTING ATTENDING: Huy Watkins MD DISCHARGE ATTENDING: Darnell Garcia MD CONSULTS: Case Management, Physical Therapy, Occupational Therapy, Speech Therapy, post-acute screen. PROCEDURES: 1. Brain CT on 08/19, no acute intracranial process. 2. Chest x-ray on 08/19, chronic findings. No acute intrathoracic abnormality. 3. On 08/19, left hip arthroplasty with no evidence for displaced fracture or dislocation. 4. Left knee x-ray on 08/19 showed no displaced fracture. DIAGNOSES: 1. Metabolic encephalopathy secondary to urinary tract infection from yeast. 2. History of cerebrovascular accident. 3. Left leg pain. 4. Hyperphosphatemia. 5. Suspected chronic obstructive pulmonary disease. 6. Acute kidney injury on chronic kidney disease. DISCHARGE MEDICATIONS: 1. Fluconazole 200 mg p.o. for 10 more days. 2. Amlodipine 10 mg p.o. daily. 3. Citalopram 40 mg p.o. daily. 4. Plavix 75 mg p.o. daily. 5. Synthroid 100 mcg p.o. q.a.m. before breakfast. 6. Lisinopril 5 mg p.o. daily. 7. Seroquel 100 mg p.o. at bedtime. 8. Rosuvastatin 40 mg p.o. at bedtime. 9. Hydralazine 25 mg t.i.d. p.r.n. for high blood pressure. HISTORY OF PRESENT ILLNESS/HOSPITAL COURSE: Ms. Oneal is a 70-year-old lady who was usually taken care of at home with [facility]. She was noted to be more confused on day of admission and brought to the ER where she was diagnosed with urinary tract infection. The patient was started on Rocephin and Diflucan as her UA exhibited yeast. She received 3 days of IV Rocephin. Urine culture also grew out yeast, but no bacteria. The fluconazole will be continued p.o. 200 mg for 14 days per UpToDate recommendations. Her ESA resolved with IV fluid therapy. The patient's metabolic encephalopathy also resolved as she was thoroughly treated with IV hydration, IV antibiotics, and the fluconazole. UDS was positive for cannabinoids, opioids, and TCAs. The patient takes opioids and TCAs on a regular basis at home as this was appropriate. Chest x-ray was no acute finding. However, she did have hyperinflation and some chronic changes. It is possible that she has COPD as she has been a smoker. She does not require home oxygen and her oxygen remained 92 to 88 throughout the hospital stay. This is likely her baseline which is appropriate with these chronic changes that exhibit likely COPD diagnosis. I recommend outpatient followup for this and if home health could help coordinate this for us. DISPOSITION: Stable and much improved, back to baseline mentation and functionality. DISCHARGE INSTRUCTIONS: 1. Location: To home with [facility] as the patient refused SNF care or rehab as I recommended to her to build up her strength. However, she was adamant about going home. 2. Diet: Regular diet. 3. Activity: As tolerated. 4. Follow up with primary care soon and with [facility] either today or tomorrow. Job ID: [id number]
--- NOTE | 2020-08-24 10:08 | EKG ---
Test Reason : EMERGENCY EXAM Blood Pressure : / mmHG Vent. Rate : 122 BPM Atrial Rate : 122 BPM P-R Int : 144 ms QRS Dur : 068 ms QT Int : 326 ms P-R-T Axes : 059 032 082 degrees QTc Int : 464 ms Sinus tachycardia Biatrial enlargement Nonspecific ST and T wave abnormality Abnormal ECG Confirmed by VALENTIN ISAAC, ANNETTE Gonzalez ([id number]), newspaper or periodical editor MARCELINA CHRISTINA ([id number]) on 08/24/2020 10:08:17 AM Referred By: Confirmed By:ANNETTE HANSON MD
== END 2020-08-23 13:41 | disposition home health service (06) | DRG 689 ==
LOC: ERS 14:54 → INTOOBSV 19:00 → SURG B 19:00 → OBSVTOIN 19:00 → INTOOBSV 08-20 17:12 → OBSVTOIN 08-20 17:12
PROVIDERS: ADMIT Family Medicine; ATTEND Family Medicine
DX: N39.0 Urinary tract infection, site not specified (principal); G93.41 Metabolic encephalopathy; N17.9 Acute kidney failure, unspecified; B48.8 Other specified mycoses; E86.0 Dehydration; F17.210 Nicotine dependence, cigarettes, uncomplicated; E83.39 Other disorders of phosphorus metabolism; J44.9 Chronic obstructive pulmonary disease, unspecified; M79.605 Pain in left leg; N18.9 Chronic kidney disease, unspecified; F41.9 Anxiety disorder, unspecified; F32.9 Major depressive disorder, single episode, unspecified; E03.9 Hypothyroidism, unspecified; F12.10 Cannabis abuse, uncomplicated; Z79.899 Other long term (current) drug therapy; Z79.890 Hormone replacement therapy; I69.344 Monoplegia of lower limb following cerebral infarction affecting left non-dominant side; Z20.822 Contact with and (suspected) exposure to COVID-19
CPT/HCPCS: 36415; 51701; 70450; 71045; 80048; 80053; 80306; 80307; 81003; 81015; 82550; 83605; 83735; 84100; 84145; 84484; 85025; 87040; 87086; 87635; 93005; 96365; 96372; 96375; 96376; G0378; J0696; J1650; J2405; J3490; U0003